=== PATIENT | male | born 1955 | race Caucasian/White ===

== ENCOUNTER 2018-07-26 20:04 | Emergency (ER) | payer MEDICARE, OTHER ==
[~2018-07-26] VITALS: Ht 172.7 cm; Wt 86.0 kg
--- NOTE | 2018-07-26 20:32 | PHYS DOC ---
Adult General HPI HPI Patient is a 62-year-old male who [facility] who is presenting with chief complaint of either vomiting or coughing up some "bloody mucus". Patient's history of bronchiectasis and has been sick for the last 2 weeks ago and some ciprofloxacin but he said he still coughing. Tonight he was eating a piece of meat is a colectomy by been stuck in his esophagus that he either coughed or throughout the above description maximum. He also has chronic shoulder pain no change recently. He has a history of low platelets apparently his platelets were as low as 19 last year when he was in the hospital they don' t know why. He is not on any anticoagulation he is taking antibiotics for recent cough with URI symptoms on 06 July. He did get a flu shot and Pneumovax shot 3 days ago. Patient is not having any abdominal pain other than noted above at this time. He notes light brown stool. Review of Systems Review of Systems Constitutional: Denies fever or chills [] Eyes: Denies change in visual acuity, redness, or eye pain [] Cardiovascular: No additional information not addressed in HPI [] GI: Musculoskeletal: Integument: Denies rash or skin lesions [] Neurologic: Denies headache, focal weakness or sensory changes [] All other systems were reviewed and found to be within normal limits, except as documented in this note. Physical Exam Physical Exam Constitutional: Well developed, well nourished, no acute distress, non-toxic appearance. [] HENT: Normocephalic, atraumatic, bilateral external ears normal, oropharynx moist, no oral exudates, nose normal. [] Eyes: PERRLA, EOMI, conjunctiva normal, no discharge. [] Neck: Normal range of motion, no tenderness, supple, no stridor. [] Cardiovascular:Heart rate regular rhythm, no murmur [] Lungs & Thorax: Bilateral breath sounds clear to auscultation [] Abdomen: Bowel sounds normal, soft, no tenderness, no masses, no pulsatile masses. [] rectal brown stool sent to lab for hemoccult. no melena or hematochezia. Skin: Warm, dry, no erythema, no rash. [] Back: No tenderness, no CVA tenderness. [] Extremities: No tenderness, no cyanosis, no clubbing, ROM intact, no edema. [] Except for range of motion of the left shoulder is reduced this is an old finding Neurologic: Alert and oriented X 3, normal motor function, normal sensory function, no focal deficits noted. [] Psychologic: Affect normal, judgement normal, mood normal. [] EKG EKG nsr rate 80 no ischemic chagnes noted[] Radiology/Procedures Radiology/Procedures [] Impressions: cxr neg Course & Med Decision Making Course & Med Decision Making Pertinent Labs and Imaging studies reviewed. (See chart for details) []62-year-old male normally seen at the [facility] history of bronchiectasis chronic pain he tells me in what he thinks is an aortic valve stenosis who also is on Prilosec for GERD simvastatin for hyperlipidemia COPD who is presenting initially with a complaint of coughing up or possibly throwing up some mucus that was blood-tinged approximately one cup's worth he tells me he has a known history of bronchiectasis he is status post ciprofloxacin last week but he tells me that really didn't help amoxicillin is usually what helps him. The symptoms occurred in the setting of he thinks he swallowed a piece of meat and it went down with some difficulty he has had that problem are long-standing basis. He said he feels some residual soreness in his epigastric area from that. In the ER he does drink some Sprite without difficulty. Screening EKG and troponin were negative chest x-ray is clear patient vitals are normal he is very well-appearing his hemoglobin is normal his rectal shows brown stool Hemoccult to come back positive but I don't think that there is a GI bleed based on the history labwork and examination. Patient will be given a perception for amoxicillin for treatment of bronchiectasis and he was Return Precautions for Any Further Bleeding or Any Other New Symptoms or Concerns. Dragon Disclaimer Dragon Disclaimer This electronic medical record was generated, in whole or in part, using a voice recognition dictation system. Departure Departure: Impression: Primary Impression: Bronchiectasis Disposition: 01 HOME, SELF-CARE Condition: STABLE Scripts Amoxicillin (AMOXICILLIN) 875 Mg Tablet 1 TAB PO BID, #20 TAB Prov: HUAN ALEXANDER MD 07/26/18 HUAN ALEXANDER MD Jul 26, 2018 20:32
[2018-07-26 20:45] LABS: BASO # 0.1 x10^3/uL (0.0-0.2); BASO % 1 % (0-3); EOS # 0.1 x10^3/uL (0.0-0.7); EOS % 1 % (0-3); HEMATOCRIT 42.5 % (39.0-53.0); LYMPH # 1.9 x10^3/uL (1.0-4.8); LYMPH % 32 % (24-48); MEAN CORPUSCULAR HEMOGLOBIN 36 pg (25-35); MEAN CORPUSCULAR HGB CONC 35 g/dL (31-37); MEAN CORPUSCULAR VOLUME 101 fL (79-100); MONO # 0.6 x10^3/uL (0.0-1.1); MONO % 10 % (0-9); NEUT # 3.5 x10^3uL (1.8-7.7); NEUT % 56 % (31-73); PLATELET COUNT 96 x10^3/uL (140-400); RED BLOOD COUNT 4.22 x10^6/uL (4.30-5.70); RED CELL DISTRIBUTION WIDTH 14.9 % (11.5-14.5); WHITE BLOOD COUNT 6.1 x10^3/uL (4.0-11.0)
[2018-07-26 20:59] LABS: ALBUMIN 3.2 g/dL (3.4-5.0); ALBUMIN/GLOBULIN RATIO 0.8 (1.0-1.7); CALCIUM 8.8 mg/dL (8.5-10.1); CREATININE 0.9 mg/dL (0.7-1.3); GFR 85.8; TOTAL BILIRUBIN 0.3 mg/dL (0.2-1.0); TOTAL PROTEIN 7.4 g/dL (6.4-8.2)
[2018-07-26 21:00] LABS: POTASSIUM 4.3 mmol/L (3.5-5.1)
[2018-07-26] MEDS ORDERED: IV NORMAL SALINE 1,000ML 500 ML IV ONE (21:00)
[2018-07-26] MEDS ORDERED: PANTOPRAZOLE IV 40 MG VIAL. IVP ONE (21:00)
--- NOTE | 2018-07-26 21:05 | RAD ---
AP portable chest 07/26/2018. Reason for exam: Cough, congestion and chest pain. No infiltrate or effusion is seen. Heart size and pulmonary vascularity appear normal. IMPRESSION: No apparent acute abnormality. Electronically signed by: Cong Garcia Jr., MD (07/26/2018 9:01 PM) [facility]
--- NOTE | 2018-07-26 21:12 | EKG ---
[address] [address] Test Date: 2018-07-26 Test Time: 20:37:02 Pat Name: ARIADNA HERNANDES Department: Room: Gender: M Casework Manager: : [id number] Requested By: HUAN ALEXANDER Order Number: [id number] Reading MD: Gagan Hall MD Measurements Intervals Colo Rate: 80 P: 43 GA: 148 QRS: 14 QRSD: 86 T: 52 QT: 360 QTc: 419 Interpretive Statements SINUS RHYTHM Electronically Signed On 07-27-2018 12:30:11 CDT by Gagan Hall MD
[2018-07-26 21:30] LABS: FECAL OB PT POSITIVE (NEG)
[2018-07-26] MEDS ORDERED: AMOX875T PO (21:49)
[2018-07-26] MEDS ORDERED: AMOXICILLIN 250 MG CAPSULE PO ONE (22:00)
[2018-07-26 22:15] VITALS: BP 149/87
== END 2018-07-26 22:11 | disposition home or self-care (01) ==
LOC: ER 20:04
DX: J47.9 Bronchiectasis, uncomplicated (principal); G89.29 Other chronic pain; M25.512 Pain in left shoulder; M25.511 Pain in right shoulder
CPT/HCPCS: 36415; 71045; 80053; 82274; 83690; 84484; 85025; 85610; 93005; 96374; 99285; C9113; J7030